=== PATIENT | female | born 1945 | race Caucasian/White ===

== ENCOUNTER 2016-06-14 11:08 | Inpatient (IN) | payer OTHER ==
[~2016-06-14] VITALS: Ht 157.5 cm; Wt 50.3 kg
[~2016-06-14 11:08] MED LIST: AMIODARONE HCL200 MG PO; ASPIR-LOW81 MG PO; ATORVASTATIN CA10 MG PO; CARVEDILOL25 MG PO; COREG6.25 M1 PO; DIGOXIN125 MCG PO; DUONEB 2.5-0.5 M3 ML AEROSOL; DUONEB 2.5-0.5 M3 ML PEP; ELIQUIS5 MG PO; FOLIC ACID1 MG PO; FUROSEMIDE20 MG PO; FUROSEMIDE40 MG PO; GLUCAGEN1 MG IM/SC; HEPARIN SO5000 UNITS SC; K-DUR20 MEQ PO; LASIX20 MG PO; LIDOCAINE700 MG TD; LIPITOR10 MG PO; LISINOPRIL10 MG PO; LISINOPRIL5 MG PO; MAG-AL PLUS SUS30 ML PO; METFORMIN HCL500 M1 PO; METFORMIN HCL500 M4 PO; NABI650T PO; NIFEREX-150,FE150 MG PO; NOVOLOG PE100 UNITS/ SC; ONCE DAILY1 EACH PO; PAIN RELIEF EX500 MG PO; PANTOPRAZOLE SO40 MG PO; Remove Lidoderm Patc TD; SENNA PLUS TAB1 EACH PO; SODIUM CHLORIDE1 G1 PO; TYLENOL PM1 CAPLET PO; VITAMIN D2000 UNIT PO; ZESTRIL10 MG PO; ZESTRIL2.5 MG PO; ZOSYN 3.3753.375 GM IV
[2016-06-14] MEDS ORDERED: ADVIL,NUPRIN,M200 MG PO (11:45)
[2016-06-14 11:48] VITALS: BP 132/82
[2016-06-14 12:21] LABS: INTER. NORMALIZED RATIO 1.1; PROTHROMBIN TIME 10.7 (9.2-11.2)
[2016-06-14 20:39] VITALS: BP 136/60
[2016-06-15] VITALS (7 sets, daily range): BP systolic 99–120; BP diastolic 52–58
[2016-06-15 07:05] LABS: HEMATOCRIT 32.2 % (36.0-46.0); MCH 31.5 PG (29.0-34.0); MCHC 32.9 G/DL (30.0-36.0); MCV 95.5 FL (83-99); MEAN PLAT.VOLUME 10.2 uM^3 (9.5-12.4); RBC DIS.WIDTH-CV 13.1 % (11.8-14.6); RBC DIS.WIDTH-SD 45.8 % (39-53); RED BLOOD COUNT 3.37 M/uL (3.80-5.20); WHITE BLOOD COUNT 9.8 K/uL (4.1-10.2)
[2016-06-15 07:13] LABS: PLATELET COUNT 164 K/uL (156-360)
[2016-06-15 07:57] LABS: ANION GAP 8 MEQ/L (2-14); CHLORIDE 101 MEQ/L (99-109); GFR ESTIMATE (CALCULATED) > 59 mL/min/; GLUCOSE 140 mg/dL (70-99); POTASSIUM 4.2 MEQ/L (3.7-5.4); PREALBUMIN 14.8 mg/dL (10-40); SAMPLE HEMOLYSIS CHECK 0; SAMPLE ICTERIC CHECK 0; SAMPLE LIPEMIA CHECK 0; SODIUM 136 MEQ/L (136-147); UREA NITROGEN (BUN) 16 mg/dL (9-23)
[2016-06-16 00:46] VITALS: BP 105/55
[2016-06-16 08:14] VITALS: BP 104/58
[2016-06-16 10:17] LABS: EOSINOPHIL (%) 0.6 % (0-5); EOSINOPHIL COUNT 0.1 K/uL (0-0.3); HEMATOCRIT 33.4 % (36.0-46.0); IMMATURE GRANULOCYTE (%) 0.5 % (0.0-0.7); IMMATURE GRANULOCYTE COUNT 0.1 K/uL; INSTRUMENT ABS NEUTROPHIL CT 11.3 K/uL; LYMPHOCYTE COUNT 0.7 K/uL (1.0-2.8); MCH 31.5 PG (29.0-34.0); MCHC 32.3 G/DL (30.0-36.0); MCV 97.4 FL (83-99); MEAN PLAT.VOLUME 10.3 uM^3 (9.5-12.4); MONOCYTE (%) 6.5 % (3-12); MONOCYTE COUNT 0.9 K/uL (0-0.8); NEUTROPHIL (%) 86.8 % (45-76); NEUTROPHIL COUNT 11.3 K/uL (1.8-6.4); PLATELET COUNT 163 K/uL (156-360); RBC DIS.WIDTH-CV 13.2 % (11.8-14.6); RBC DIS.WIDTH-SD 47.3 % (39-53); RED BLOOD COUNT 3.43 M/uL (3.80-5.20)
[2016-06-16 11:21] VITALS: BP 102/53
[2016-06-16 17:15] VITALS: BP 110/58
[2016-06-16 19:54] VITALS: BP 119/58
[2016-06-16 21:52] LABS: POINT-OF-CARE METER ID UU14149397
[2016-06-17 00:02] VITALS: BP 106/54
[2016-06-17 08:18] VITALS: BP 111/55
[2016-06-17 11:19] VITALS: BP 112/57
[2016-06-17 11:42] LABS: POINT-OF-CARE METER ID UU14149397
[2016-06-17 16:30] VITALS: BP 122/55
[2016-06-17 19:36] VITALS: BP 116/58
[2016-06-17 23:44] VITALS: BP 104/55
[2016-06-18 03:20] VITALS: BP 119/56
[2016-06-18 05:37] LABS: EOSINOPHIL (%) 2.7 % (0-5); EOSINOPHIL COUNT 0.2 K/uL (0-0.3); HEMATOCRIT 30.4 % (36.0-46.0); IMMATURE GRANULOCYTE (%) 0.4 % (0.0-0.7); INSTRUMENT ABS NEUTROPHIL CT 5.7 K/uL; LYMPHOCYTE COUNT 0.9 K/uL (1.0-2.8); MCH 31.5 PG (29.0-34.0); MCHC 31.9 G/DL (30.0-36.0); MCV 98.7 FL (83-99); MEAN PLAT.VOLUME 10.5 uM^3 (9.5-12.4); MONOCYTE (%) 6.9 % (3-12); MONOCYTE COUNT 0.5 K/uL (0-0.8); NEUTROPHIL (%) 77.1 % (45-76); NEUTROPHIL COUNT 5.7 K/uL (1.8-6.4); PLATELET COUNT 223 K/uL (156-360); RBC DIS.WIDTH-CV 13.2 % (11.8-14.6); RBC DIS.WIDTH-SD 47.3 % (39-53); RED BLOOD COUNT 3.08 M/uL (3.80-5.20); WHITE BLOOD COUNT 7.4 K/uL (4.1-10.2)
[2016-06-18 05:45] LABS: ANION GAP 8 MEQ/L (2-14); CHLORIDE 99 MEQ/L (99-109); GFR ESTIMATE (CALCULATED) > 59 mL/min/; POTASSIUM 4.3 MEQ/L (3.7-5.4); SAMPLE HEMOLYSIS CHECK 0; SAMPLE ICTERIC CHECK 0; SAMPLE LIPEMIA CHECK 0; SODIUM 137 MEQ/L (136-147); UREA NITROGEN (BUN) 10 mg/dL (9-23)
[2016-06-18 05:46] LABS: GLUCOSE 78 mg/dL (70-99)
[2016-06-18 09:07] VITALS: BP 120/60
[2016-06-18 11:21] LABS: POINT-OF-CARE METER ID UU14188577
[2016-06-18 11:24] VITALS: BP 119/59
[2016-06-18 17:24] LABS: POINT-OF-CARE METER ID UU14188577
[2016-06-18 18:12] VITALS: BP 118/60
[2016-06-18 19:41] VITALS: BP 123/58
[2016-06-18 23:44] VITALS: BP 125/68
[2016-06-19 03:52] VITALS: BP 135/69
[2016-06-19 07:49] VITALS: BP 147/93
[2016-06-19 11:53] VITALS: BP 133/68
[2016-06-19 17:01] VITALS: BP 137/73
[2016-06-19 19:18] VITALS: BP 120/61
[2016-06-19 22:00] LABS: C DIFF TOXIN POSITIVE (NEGATIVE)
[2016-06-19 22:02] LABS: PROBE CHECK PASS
[2016-06-19 23:25] VITALS: BP 128/72
[2016-06-20 04:00] VITALS: BP 132/70
[2016-06-20 08:28] VITALS: BP 158/78
[2016-06-20 11:27] VITALS: BP 122/60
[2016-06-20 15:47] VITALS: BP 121/59
[2016-06-20 20:41] VITALS: BP 131/77
[2016-06-20 21:26] LABS: POINT-OF-CARE METER ID UU14149397
[2016-06-21] VITALS (7 sets, daily range): BP systolic 114–135; BP diastolic 57–83
[2016-06-21 06:02] LABS: EOSINOPHIL (%) 1.7 % (0-5); EOSINOPHIL COUNT 0.1 K/uL (0-0.3); HEMATOCRIT 32.9 % (36.0-46.0); IMMATURE GRANULOCYTE (%) 0.4 % (0.0-0.7); INSTRUMENT ABS NEUTROPHIL CT 5.9 K/uL; LYMPHOCYTE COUNT 1.1 K/uL (1.0-2.8); MCH 31.2 PG (29.0-34.0); MCHC 31.9 G/DL (30.0-36.0); MCV 97.6 FL (83-99); MEAN PLAT.VOLUME 9.9 uM^3 (9.5-12.4); MONOCYTE (%) 8.6 % (3-12); MONOCYTE COUNT 0.7 K/uL (0-0.8); NEUTROPHIL COUNT 5.9 K/uL (1.8-6.4); PLATELET COUNT 259 K/uL (156-360); RBC DIS.WIDTH-CV 13.2 % (11.8-14.6); RBC DIS.WIDTH-SD 46.7 % (39-53); RED BLOOD COUNT 3.37 M/uL (3.80-5.20); WHITE BLOOD COUNT 7.9 K/uL (4.1-10.2)
[2016-06-21 06:19] LABS: ANION GAP 6 MEQ/L (2-14); CHLORIDE 102 MEQ/L (99-109); GFR ESTIMATE (CALCULATED) > 59 mL/min/; GLUCOSE 94 mg/dL (70-99); SAMPLE HEMOLYSIS CHECK 0; SAMPLE ICTERIC CHECK 0; SAMPLE LIPEMIA CHECK 0; SODIUM 141 MEQ/L (136-147); UREA NITROGEN (BUN) 10 mg/dL (9-23)
[2016-06-22 04:02] VITALS: BP 140/83
[2016-06-22 06:47] LABS: POINT-OF-CARE METER ID UU14188577
[2016-06-22 07:53] VITALS: BP 136/84
[2016-06-22 12:00] VITALS: BP 156/67
[2016-06-22 15:54] VITALS: BP 112/60
[2016-06-22 19:56] VITALS: BP 122/70
[2016-06-22 21:48] LABS: POINT-OF-CARE METER ID UU14188577
[2016-06-22 23:51] VITALS: BP 96/55
[2016-06-23 04:25] VITALS: BP 123/56
[2016-06-23 05:38] LABS: EOSINOPHIL (%) 1.4 % (0-5); EOSINOPHIL COUNT 0.1 K/uL (0-0.3); HEMATOCRIT 31.7 % (36.0-46.0); IMMATURE GRANULOCYTE (%) 0.5 % (0.0-0.7); IMMATURE GRANULOCYTE COUNT 0.1 K/uL; INSTRUMENT ABS NEUTROPHIL CT 7.8 K/uL; MCH 30.6 PG (29.0-34.0); MCHC 31.5 G/DL (30.0-36.0); MCV 96.9 FL (83-99); MEAN PLAT.VOLUME 10.2 uM^3 (9.5-12.4); MONOCYTE (%) 8.1 % (3-12); MONOCYTE COUNT 0.8 K/uL (0-0.8); NEUTROPHIL (%) 79.7 % (45-76); NEUTROPHIL COUNT 7.8 K/uL (1.8-6.4); PLATELET COUNT 278 K/uL (156-360); RBC DIS.WIDTH-CV 13.2 % (11.8-14.6); RED BLOOD COUNT 3.27 M/uL (3.80-5.20); WHITE BLOOD COUNT 9.7 K/uL (4.1-10.2)
[2016-06-23 06:48] LABS: POINT-OF-CARE METER ID UU14149397
[2016-06-23 07:30] LABS: DIGOXIN 0.8 ng/mL (0.8-2.0)
[2016-06-23 07:32] LABS: ANION GAP 8 MEQ/L (2-14); CHLORIDE 96 MEQ/L (99-109); GFR ESTIMATE (CALCULATED) > 59 mL/min/; POTASSIUM 4.1 MEQ/L (3.7-5.4); SAMPLE HEMOLYSIS CHECK 0; SAMPLE ICTERIC CHECK 0; SAMPLE LIPEMIA CHECK 0; SODIUM 136 MEQ/L (136-147); UREA NITROGEN (BUN) 12 mg/dL (9-23)
[2016-06-23 07:34] LABS: GLUCOSE 118 mg/dL (70-99)
[2016-06-23 08:30] VITALS: BP 142/73
[2016-06-23 12:30] VITALS: BP 118/71
[2016-06-23 15:57] VITALS: BP 118/69
[2016-06-23] MEDS ORDERED: VANCOMYCIN HCL125 MG PO (17:53)
[2016-06-23] MEDS ORDERED: HYDROCODON-ACE1 EAC7 PO (17:55)
== END 2016-06-23 19:47 | disposition home or self-care (01) | DRG 163 ==
LOC: SDC 11:08 → 3EAST 16:00 → 2SOUTH 16:00 → 3EAST 19:04
PROVIDERS: Family Medicine Sports Medicine; Thoracic Surgery (Cardiothoracic Vascular Surgery)
DX: C34.81 Malignant neoplasm of overlapping sites of right bronchus and lung (principal); J91.0 Malignant pleural effusion; E43 Unspecified severe protein-calorie malnutrition; A04.7 Enterocolitis due to Clostridium difficile; R64 Cachexia; I48.2 Chronic atrial fibrillation; I42.9 Cardiomyopathy, unspecified; C79.51 Secondary malignant neoplasm of bone; E11.9 Type 2 diabetes mellitus without complications; J98.19 Other pulmonary collapse; I10 Essential (primary) hypertension; E53.8 Deficiency of other specified B group vitamins; D63.8 Anemia in other chronic diseases classified elsewhere; K59.00 Constipation, unspecified; K21.9 Gastro-esophageal reflux disease without esophagitis; Z68.20 Body mass index [BMI] 20.0-20.9, adult; Z85.43 Personal history of malignant neoplasm of ovary; Z88.5 Allergy status to narcotic agent; Z98.1 Arthrodesis status
CPT/HCPCS: 71010; 71020; 80048; 80162; 82948; 84134; 84466; 85025; 85027; 85610; 86900; 86901; 87493; 93005; 94640; 94640 76; 97530 GO; 97530 GP; 99202; J0330; J0690; J1100; J1644; J1885; J2250; J2405; J2710; J3010; J7030; J7040; J7120

== ENCOUNTER 2016-06-25 22:54 | Inpatient (IN) | payer OTHER ==
[~2016-06-25] VITALS: Ht 157.5 cm; Wt 41.7 kg
[~2016-06-25 22:54] MED LIST changes: +ADVIL,NUPRIN,M200 MG PO; +HYDROCODON-ACE1 EAC7 PO; +VANCOMYCIN HCL125 MG PO
[2016-06-26] MEDS ORDERED: DIGOXIN125 MCG PO (00:14)
[2016-06-26] MEDS ORDERED: SENNA PLUS TAB1 EACH PO (00:15)
[2016-06-26] MEDS ORDERED: VITAMIN D32000 UNI1 PO (00:15)
[2016-06-26 00:19] LABS: EOSINOPHIL (%) 0.3 % (0-5); EOSINOPHIL COUNT 0.1 K/uL (0-0.3); HEMATOCRIT 31.4 % (36.0-46.0); IMMATURE GRANULOCYTE (%) 0.6 % (0.0-0.7); IMMATURE GRANULOCYTE COUNT 0.1 K/uL; INSTRUMENT ABS NEUTROPHIL CT 14.4 K/uL; LYMPHOCYTE COUNT 0.8 K/uL (1.0-2.8); MCH 30.6 PG (29.0-34.0); MCHC 32.5 G/DL (30.0-36.0); MCV 94.3 FL (83-99); MEAN PLAT.VOLUME 9.4 uM^3 (9.5-12.4); MONOCYTE (%) 4.8 % (3-12); MONOCYTE COUNT 0.8 K/uL (0-0.8); NEUTROPHIL (%) 89.5 % (45-76); NEUTROPHIL COUNT 14.4 K/uL (1.8-6.4); RBC DIS.WIDTH-CV 13.2 % (11.8-14.6); RBC DIS.WIDTH-SD 45.7 % (39-53); RED BLOOD COUNT 3.33 M/uL (3.80-5.20)
[2016-06-26 00:20] LABS: PLATELET COUNT 457 K/uL (156-360); WHITE BLOOD COUNT 16.1 K/uL (4.1-10.2)
[2016-06-26 00:28] LABS: INTER. NORMALIZED RATIO 1.1; PROTHROMBIN TIME 11.4 (9.2-11.2)
[2016-06-26 00:31] LABS: CHLORIDE 99 mEq/L (99-109); POTASSIUM 3.9 mEq/L (3.7-5.4); SODIUM 137 mEq/L (136-147)
[2016-06-26 00:34] LABS: GLUCOSE 175 mg/dL (70-99)
[2016-06-26 00:35] LABS: ANION GAP 9 MEQ/L (2-14)
[2016-06-26 00:36] LABS: TOTAL BILIRUBIN 0.3 mg/dL (0.0-1.0)
[2016-06-26 00:37] LABS: ALKALINE PHOSPHATASE 82 IU/L (3-129); GFR ESTIMATE (CALCULATED) > 59 mL/min/
[2016-06-26 00:38] LABS: UREA NITROGEN (BUN) 9 mg/dL (9-23)
[2016-06-26 00:41] LABS: TROP-I INTERPRETATION NEGATIVE; TROPONIN-I 0.02 ng/mL (0.0-0.30)
[2016-06-26 00:46] LABS: DIGOXIN 0.6 ng/mL (0.8-2.0)
[2016-06-26 02:39] VITALS: BP 124/71
[2016-06-26 07:34] VITALS: BP 138/78
[2016-06-26 11:22] VITALS: BP 126/61
[2016-06-26 15:31] VITALS: BP 106/54
[2016-06-26 19:00] VITALS: BP 111/62
[2016-06-26 23:22] VITALS: BP 118/65
[2016-06-27 03:44] VITALS: BP 108/60
[2016-06-27 06:23] LABS: EOSINOPHIL (%) 1.4 % (0-5); EOSINOPHIL COUNT 0.2 K/uL (0-0.3); HEMATOCRIT 29.5 % (36.0-46.0); IMMATURE GRANULOCYTE (%) 0.3 % (0.0-0.7); INSTRUMENT ABS NEUTROPHIL CT 9.1 K/uL; MCH 30.3 PG (29.0-34.0); MCHC 31.2 G/DL (30.0-36.0); MEAN PLAT.VOLUME 9.6 uM^3 (9.5-12.4); MONOCYTE (%) 6.8 % (3-12); MONOCYTE COUNT 0.8 K/uL (0-0.8); NEUTROPHIL (%) 82.5 % (45-76); NEUTROPHIL COUNT 9.1 K/uL (1.8-6.4); PLATELET COUNT 374 K/uL (156-360); RBC DIS.WIDTH-CV 13.4 % (11.8-14.6); RBC DIS.WIDTH-SD 48.2 % (39-53); RED BLOOD COUNT 3.04 M/uL (3.80-5.20)
[2016-06-27 06:39] LABS: ANION GAP 6 MEQ/L (2-14); CHLORIDE 96 MEQ/L (99-109); GFR ESTIMATE (CALCULATED) > 59 mL/min/; SAMPLE HEMOLYSIS CHECK 0; SAMPLE ICTERIC CHECK 0; SAMPLE LIPEMIA CHECK 0; SODIUM 136 MEQ/L (136-147); UREA NITROGEN (BUN) 9 mg/dL (9-23)
[2016-06-27 06:40] LABS: GLUCOSE 116 mg/dL (70-99); POTASSIUM 5.3 MEQ/L (3.7-5.4)
[2016-06-27 07:37] VITALS: BP 140/62
[2016-06-27 11:23] VITALS: BP 119/59
[2016-06-27 15:22] VITALS: BP 106/52
[2016-06-27 19:01] VITALS: BP 110/60
[2016-06-27 23:26] VITALS: BP 130/72
[2016-06-28 07:24] LABS: EOSINOPHIL (%) 0.8 % (0-5); EOSINOPHIL COUNT 0.1 K/uL (0-0.3); HEMATOCRIT 30.8 % (36.0-46.0); IMMATURE GRANULOCYTE (%) 0.5 % (0.0-0.7); IMMATURE GRANULOCYTE COUNT 0.1 K/uL; INSTRUMENT ABS NEUTROPHIL CT 14.1 K/uL; MCH 30.4 PG (29.0-34.0); MCHC 31.5 G/DL (30.0-36.0); MCV 96.6 FL (83-99); MEAN PLAT.VOLUME 9.8 uM^3 (9.5-12.4); NEUTROPHIL (%) 86.1 % (45-76); NEUTROPHIL COUNT 14.1 K/uL (1.8-6.4); PLATELET COUNT 447 K/uL (156-360); RBC DIS.WIDTH-CV 13.3 % (11.8-14.6); RBC DIS.WIDTH-SD 47.6 % (39-53); RED BLOOD COUNT 3.19 M/uL (3.80-5.20); WHITE BLOOD COUNT 16.3 K/uL (4.1-10.2)
[2016-06-28 07:44] LABS: ANION GAP 6 MEQ/L (2-14); CHLORIDE 95 MEQ/L (99-109); GFR ESTIMATE (CALCULATED) > 59 mL/min/; GLUCOSE 125 mg/dL (70-99); POTASSIUM 5.3 MEQ/L (3.7-5.4); SAMPLE HEMOLYSIS CHECK 0; SAMPLE ICTERIC CHECK 0; SAMPLE LIPEMIA CHECK 0; SODIUM 134 MEQ/L (136-147); UREA NITROGEN (BUN) 8 mg/dL (9-23)
[2016-06-29 00:34] VITALS: BP 107/55
[2016-06-29 08:05] VITALS: BP 119/60
[2016-06-29 12:15] VITALS: BP 117/61
[2016-06-29 16:10] VITALS: BP 130/62
[2016-06-29] MEDS ORDERED: METOCLOPRAMIDE H5 MG PO (17:56)
[2016-06-29] MEDS ORDERED: TYLENOL REGULA325 MG PO (17:57)
== END 2016-06-29 19:26 | disposition home or self-care (01) | DRG 180 ==
LOC: EME 22:54 → EDOF 06-26 00:49 → 2EASTP 06-26 00:49
PROVIDERS: Emergency Medicine; Family Medicine Sports Medicine
DX: C34.31 Malignant neoplasm of lower lobe, right bronchus or lung (principal); J91.0 Malignant pleural effusion; E43 Unspecified severe protein-calorie malnutrition; A04.7 Enterocolitis due to Clostridium difficile; I48.2 Chronic atrial fibrillation; E11.9 Type 2 diabetes mellitus without complications; I42.9 Cardiomyopathy, unspecified; I10 Essential (primary) hypertension; E53.8 Deficiency of other specified B group vitamins; Z68.1 Body mass index [BMI] 19.9 or less, adult; R09.02 Hypoxemia
CPT/HCPCS: 71020; 80048; 80053; 80162; 84484; 85025; 85610; 87040; 93005; 94010; 94640; 94640 76; 94799; 99202; 99281; 99285

== ENCOUNTER 2016-08-10 19:48 | Inpatient (IN) | payer OTHER ==
[~2016-08-10] VITALS: Ht 157.5 cm; Wt 58.0 kg
[~2016-08-10 19:48] MED LIST changes: +METOCLOPRAMIDE H5 MG PO; +TYLENOL REGULA325 MG PO; +VITAMIN D32000 UNI1 PO
[2016-08-10 20:13] LABS: BASE EXCESS 16.3 mEq/L (-3 to +3); BICARBONATE 42.7 mEq/L (22-26); CARBOXY HGB 2.1 % (0-5); METHEMOGLOBIN 1.1 % (0-1.5); PO2 413 mm Hg (80-100)
[2016-08-10 20:14] LABS: COMMENTS - BLOOD GASES A+C+; DEVICE 980; FI02 100 %; MECHANICAL RATE 14 resp/min; MODE A/C; PCO2 60 mm Hg (35-45); PEEP 5 CM/H20; SITE LR; TIDAL VOLUME 350 ML; pH 7.46 (7.35-7.45)
[2016-08-10 20:53] LABS: HEMATOCRIT 36.5 % (36.0-46.0); MCHC 29.9 G/DL (30.0-36.0); MCV 97.1 FL (83-99); MEAN PLAT.VOLUME 9.8 uM^3 (9.5-12.4); PLATELET COUNT 219 K/uL (156-360); RBC DIS.WIDTH-CV 14.5 % (11.8-14.6); RBC DIS.WIDTH-SD 51.5 % (39-53); RED BLOOD COUNT 3.76 M/uL (3.80-5.20); WHITE BLOOD COUNT 9.5 K/uL (4.1-10.2)
[2016-08-10 21:04] LABS: CHLORIDE 94 mEq/L (99-109); POTASSIUM 5.8 mEq/L (3.7-5.4); SODIUM 138 mEq/L (136-147)
[2016-08-10 21:06] LABS: GLUCOSE 212 mg/dL (70-99)
[2016-08-10 21:08] LABS: ANION GAP 8 MEQ/L (2-14); TOTAL BILIRUBIN 0.6 mg/dL (0.0-1.0)
[2016-08-10 21:10] LABS: ALKALINE PHOSPHATASE 184 IU/L (3-129); GFR ESTIMATE (CALCULATED) > 59 mL/min/
[2016-08-10 21:11] LABS: UREA NITROGEN (BUN) 35 mg/dL (9-23)
[2016-08-10 21:12] LABS: DIRECT BILIRUBIN 0.3 mg/dL (0.0-0.3)
[2016-08-10 21:14] LABS: LIPASE 16 U/L (1.0-51.0)
[2016-08-10 21:15] LABS: TROP-I INTERPRETATION NEGATIVE; TROPONIN-I 0.03 ng/mL (0.0-0.30)
[2016-08-10] MEDS ORDERED: PREDNISONE10 MG PO (23:40)
[2016-08-11 00:40] VITALS: BP 98/41
== END 2016-08-11 02:00 | DRG 208 ==
LOC: EME → EDBD 19:48 → EDOF 22:45 → 5EAST 08-11 00:50
PROVIDERS: Emergency Medicine
PROC: 5A1935Z Respiratory Ventilation, Less than 24 Consecutive Hours (ICD-10-PCS; principal; 2016-08-10)
DX: J96.01 Acute respiratory failure with hypoxia (principal); J18.9 Pneumonia, unspecified organism; Z51.5 Encounter for palliative care; Z66 Do not resuscitate; C78.01 Secondary malignant neoplasm of right lung; J91.0 Malignant pleural effusion; E46 Unspecified protein-calorie malnutrition; I42.9 Cardiomyopathy, unspecified; D64.9 Anemia, unspecified; E11.9 Type 2 diabetes mellitus without complications; E53.8 Deficiency of other specified B group vitamins; I11.0 Hypertensive heart disease with heart failure; I50.9 Heart failure, unspecified; I48.2 Chronic atrial fibrillation; K21.9 Gastro-esophageal reflux disease without esophagitis; M19.90 Unspecified osteoarthritis, unspecified site; Z85.42 Personal history of malignant neoplasm of other parts of uterus; Z85.43 Personal history of malignant neoplasm of ovary; Z98.1 Arthrodesis status
CPT/HCPCS: 36600; 71010; 80048; 80076; 82803; 83605; 83690; 84484; 85025; 85027; 87040; 87070; 87205; 93005; 94002; 99202; 99281; 99285; J2270; J2543; J7030